=== PATIENT | male | born 1960 | race Caucasian/White ===

== ENCOUNTER 2020-05-20 09:28 | Outpatient (CLI) | payer OTHER ==
[2020-05-20] VITALS (17 sets, daily range): BP systolic 110–139; BP diastolic 68–91
== END 2020-05-20 23:59 | disposition home or self-care (01) ==
LOC: CARD DIAG 09:28
PROVIDERS: ATTEND Internal Medicine Interventional Cardiology
DX: R55 Syncope and collapse (principal)
CPT/HCPCS: 93660

== ENCOUNTER 2021-05-05 17:01 | Inpatient (IN) | payer OTHER ==
[~2021-05-05] VITALS: Ht 180.3 cm; Wt 86.4 kg
[2021-05-05 17:41] LABS: BASOPHILS # (AUTO) 0.1 X10'3 (0-0.2); BASOPHILS % (AUTO) 0.8 % (0-1); EOSINOPHILS # (AUTO) 0.2 X10'3 (0-0.9); EOSINOPHILS % (AUTO) 3.5 % (0-6); HEMOGLOBIN 15.3 g/dl (14.0-17.9); LYMPHOCYTES # (AUTO) 1.3 X10'3 (1.1-4.8); LYMPHOCYTES % (AUTO) 20.9 % (21-51); MEAN CORPUSCULAR HEMOGLOBIN 31.9 PG (27.0-31.0); MEAN CORPUSCULAR HGB CONC 33.9 g/dL (33.0-36.5); MEAN CORPUSCULAR VOLUME 93.9 FL (78-98); MEAN PLATELET VOLUME 9.2 FL (7.4-10.4); MONOCYTES # (AUTO) 0.5 X10'3 (0-0.9); MONOCYTES % (AUTO) 7.9 % (2-12); NEUTROPHILS # (AUTO) 4.3 X10'3 (1.8-7.7); NEUTROPHILS % (AUTO) 66.9 % (42-75); PLATELET COUNT 226 X10'3 (140-440); RED BLOOD COUNT 4.79 X10'6 (4.70-6.10); RED CELL DISTRIBUTION WIDTH 13.9 % (11.5-14.5); WHITE BLOOD COUNT 6.5 X10'3 (4.5-11.0)
[2021-05-05 17:52] LABS: ALANINE AMINOTRANSFERASE 44 U/L (12-78); ALBUMIN/GLOBULIN RATIO 1.2 (1.1-1.5); ALKALINE PHOSPHATASE 63 IU/L (46-116); ANION GAP 7 (8-16); ASPARTATE AMINO TRANSFERASE 15 U/L (10-37); BILIRUBIN,TOTAL 0.3 MG/DL (0.1-1.0); BLOOD UREA NITROGEN 11 MG/DL (7-18); BUN/CREATININE RATIO 12.2 (5.4-32.0); CALCIUM 9.1 MG/DL (8.5-10.1); CHLORIDE 107 MMOL/L (99-107); GLUCOSE 114 MG/DL (70-104); POTASSIUM 3.8 MMOL/L (3.5-5.1); SODIUM 143 MMOL/L (135-145); TOTAL CARBON DIOXIDE 29.3 MMOL/L (24-32); TOTAL PROTEIN 7.4 G/DL (6.4-8.2); eGFR 86 ML/MIN
[2021-05-05] MEDS ORDERED: MAGN400C PO (20:20)
[2021-05-05] MEDS ORDERED: LOSA25TA96 PO (20:20)
[2021-05-05] MEDS ORDERED: ALPR1TAB2 PO (20:20)
[2021-05-05] MEDS ORDERED: SERT-153 PO (20:20)
[2021-05-05] MEDS ORDERED: ondansetron/PF 4mg/2ml inj IV PRN (21:50)
[2021-05-05] MEDS ORDERED: ondansetron 4mg rapidly disintigrating tab PO PRN (21:50)
[2021-05-05] MEDS ORDERED: acetaminophen 650mg rectal suppository RC PRN (21:50)
[2021-05-05] MEDS ORDERED: diphenhydrAMINE 25mg capsule PO PRN (21:50)
[2021-05-05] MEDS ORDERED: mag hydrox/Alum hydrox/simeth 30ml oral suspension PO PRN (21:50)
[2021-05-05] MEDS ORDERED: diphenhydrAMINE 50 mg/ml inj IV PRN (21:50)
[2021-05-05] MEDS ORDERED: HYDROcodone/acetaminophen 5mg/325mg tablet PO PRN (21:50)
[2021-05-05] MEDS ORDERED: acetaminophen 325mg tablet PO PRN ×2 (21:50)
[2021-05-05] MEDS ORDERED: bisacodyl 10mg suppository rectal RC PRN (21:50)
[2021-05-05] MEDS ORDERED: magnesium hydroxide 30ml (MOM) UD suspension PO PRN (21:50)
[2021-05-05] MEDS: normal saline 1000ml 1,000 ML IV SCH (22:35)
[2021-05-05 22:39] LABS: HEMOGLOBIN A1C 5.3 % (4.5-6.2)
[2021-05-05 22:43] LABS: MAGNESIUM 2.1 MG/DL (1.5-2.4); PHOSPHORUS 3.4 MG/DL (2.3-4.5)
[2021-05-05 22:57] LABS: PARTIAL THROMBOPLASTIN TIME 28 SECONDS (22-32)
[2021-05-05 23:05] LABS: D-DIMER < 0.19 MG/L FEU (0-0.50)
[2021-05-05 23:07] LABS: CREATINE KINASE 46 U/L (39-308); LIPASE 132 U/L (73-393)
[2021-05-06] VITALS (16 sets, daily range): BP systolic 114–156; BP diastolic 61–88
[2021-05-06] MEDS ORDERED: ALPR0.5T9 PO (06:21)
[2021-05-06] MEDS ORDERED: MAGN100T5 PO (06:23)
--- NOTE | 2021-05-06 06:37 | NUR ---
Patient in room MED 317B. I have received report from LEATHA NEGRO and had the opportunity to ask questions and assume patient care.
[2021-05-06] MEDS ORDERED: ALPRAZolam 0.25mg tablet PO PRN (06:40)
[2021-05-06 07:10] LABS: BASOPHILS % (AUTO) 0.7 % (0-1); EOSINOPHILS # (AUTO) 0.2 X10'3 (0-0.9); EOSINOPHILS % (AUTO) 3.3 % (0-6); HEMATOCRIT 42.1 % (42.0-52.0); HEMOGLOBIN 14.6 g/dl (14.0-17.9); LYMPHOCYTES # (AUTO) 1.3 X10'3 (1.1-4.8); LYMPHOCYTES % (AUTO) 21.6 % (21-51); MEAN CORPUSCULAR HEMOGLOBIN 32.2 PG (27.0-31.0); MEAN CORPUSCULAR HGB CONC 34.7 g/dL (33.0-36.5); MEAN CORPUSCULAR VOLUME 92.8 FL (78-98); MEAN PLATELET VOLUME 9.5 FL (7.4-10.4); MONOCYTES # (AUTO) 0.4 X10'3 (0-0.9); NEUTROPHILS # (AUTO) 4.2 X10'3 (1.8-7.7); NEUTROPHILS % (AUTO) 67.4 % (42-75); PLATELET COUNT 205 X10'3 (140-440); RED BLOOD COUNT 4.54 X10'6 (4.70-6.10); RED CELL DISTRIBUTION WIDTH 13.9 % (11.5-14.5); WHITE BLOOD COUNT 6.2 X10'3 (4.5-11.0)
[2021-05-06 07:34] LABS: ALANINE AMINOTRANSFERASE 37 U/L (12-78); ALBUMIN 3.6 G/DL (3.4-5.0); ALBUMIN/GLOBULIN RATIO 1.2 (1.1-1.5); ALKALINE PHOSPHATASE 53 IU/L (46-116); ANION GAP 6 (8-16); ASPARTATE AMINO TRANSFERASE 15 U/L (10-37); BILIRUBIN,TOTAL 0.5 MG/DL (0.1-1.0); BLOOD UREA NITROGEN 10 MG/DL (7-18); BUN/CREATININE RATIO 12.3 (5.4-32.0); CALCIUM 8.5 MG/DL (8.5-10.1); CHLORIDE 107 MMOL/L (99-107); CREATININE 0.81 MG/DL (0.60-1.10); GLUCOSE 94 MG/DL (70-104); POTASSIUM 3.8 MMOL/L (3.5-5.1); SODIUM 140 MMOL/L (135-145); TOTAL CARBON DIOXIDE 26.8 MMOL/L (24-32); TOTAL PROTEIN 6.7 G/DL (6.4-8.2); eGFR > 90 ML/MIN
[2021-05-06 07:37] LABS: CHOL/HDL RATIO 5.3 (0.00-4.99); CHOLESTEROL 192 MG/DL (0-200); HDL CHOLESTEROL 36 MG/DL (35-60); LDL CHOLESTEROL 135 MG/DL (50-100); TRIGLYCERIDES 114 MG/DL (20-135)
[2021-05-06] MEDS: normal saline 1000ml 1,000 ML IV SCH ×2 (07:50→17:50)
[2021-05-06] MEDS: docusate sod 100mg capsule PO SCH ×2 (08:00→20:00)
[2021-05-06] MEDS: losartan 50mg tablet PO SCH (08:11)
[2021-05-06] MEDS: pantoprazole 40mg Tablet.DR PO SCH (08:11)
[2021-05-06] MEDS: sertraline 50mg tablet PO SCH (08:12)
[2021-05-06] MEDS: heparin, porcine 5000 units/ml vial SQ SCH (08:12)
[2021-05-06] MEDS ORDERED: FLU VACC QS2021-22(6MOS UP)/PF 60 MCG/0.5 ML SYRINGE IM ONE (12:15)
[2021-05-06] MEDS ORDERED: pneumococcal 23-VAL P-sac vacc 25 mcg/0.5ml vial IMVAC ONE (12:15)
[2021-05-06] MEDS ORDERED: ceFAZolin 1000mg inj ONE (14:13)
[2021-05-06] MEDS ORDERED: ceFAZolin 2gm in dextrose, iso 50 ML IV ONE (14:14)
[2021-05-06] MEDS ORDERED: LIDOcaine 1% w/EPI 1:100,000 30ml vial (MDV) ONE (14:14)
[2021-05-06] MEDS ORDERED: midazolam 1 mg/ML 2ml injection ONE ×2 (14:22→14:42)
[2021-05-06] MEDS ORDERED: fentaNYL/PF 50MCG/1 ML 2ML syringe ONE (14:22)
--- NOTE | 2021-05-06 14:54 | NUR ---
pt left floor at about 1410 to go to scientific laboratory supervisor for pacemaker placement
[2021-05-06] MEDS ORDERED: HYDROcodone/acetaminophen 10/325mg tab PO PRN (16:05)
[2021-05-06] MEDS ORDERED: LORazepam 1 MG tablet PO PRN (16:05)
[2021-05-06] MEDS ORDERED: HYDROcodone/acetaminophen 5mg/325mg tablet PO PRN (16:05)
--- NOTE | 2021-05-06 16:05 | NUR ---
pt arrived back to floor at 1555
--- NOTE | 2021-05-06 18:29 | NUR ---
Problems reprioritized. Patient report given, questions answered & plan of care reviewed with LEATHA Pinedo.
[2021-05-06] MEDS: ceFAZolin/D5W- 1GM premix 50 ML IV SCH (22:25)
[2021-05-07 02:00] VITALS: BP 117/63
[2021-05-07] MEDS: normal saline 1000ml 1,000 ML IV SCH ×2 (03:50→08:12)
[2021-05-07 06:00] VITALS: BP 122/66
--- NOTE | 2021-05-07 06:00 | NUR ---
Patient in room MED 317. I have received report from MONIK ZHANG and had the opportunity to ask questions and assume patient care.
[2021-05-07 06:07] LABS: BASOPHILS # (AUTO) 0.1 X10'3 (0-0.2); BASOPHILS % (AUTO) 0.7 % (0-1); EOSINOPHILS # (AUTO) 0.2 X10'3 (0-0.9); EOSINOPHILS % (AUTO) 2.4 % (0-6); HEMATOCRIT 41.6 % (42.0-52.0); HEMOGLOBIN 14.3 g/dl (14.0-17.9); LYMPHOCYTES # (AUTO) 1.4 X10'3 (1.1-4.8); LYMPHOCYTES % (AUTO) 18.3 % (21-51); MEAN CORPUSCULAR HEMOGLOBIN 32.1 PG (27.0-31.0); MEAN CORPUSCULAR HGB CONC 34.3 g/dL (33.0-36.5); MEAN CORPUSCULAR VOLUME 93.6 FL (78-98); MEAN PLATELET VOLUME 9.2 FL (7.4-10.4); MONOCYTES # (AUTO) 0.6 X10'3 (0-0.9); MONOCYTES % (AUTO) 7.7 % (2-12); NEUTROPHILS # (AUTO) 5.2 X10'3 (1.8-7.7); NEUTROPHILS % (AUTO) 70.9 % (42-75); PLATELET COUNT 195 X10'3 (140-440); RED BLOOD COUNT 4.45 X10'6 (4.70-6.10); RED CELL DISTRIBUTION WIDTH 13.5 % (11.5-14.5); WHITE BLOOD COUNT 7.4 X10'3 (4.5-11.0)
[2021-05-07 06:23] LABS: ALANINE AMINOTRANSFERASE 33 U/L (12-78); ALBUMIN 3.4 G/DL (3.4-5.0); ALBUMIN/GLOBULIN RATIO 1.2 (1.1-1.5); ALKALINE PHOSPHATASE 54 IU/L (46-116); ANION GAP 11 (8-16); ASPARTATE AMINO TRANSFERASE 15 U/L (10-37); BILIRUBIN,TOTAL 0.4 MG/DL (0.1-1.0); BLOOD UREA NITROGEN 13 MG/DL (7-18); BUN/CREATININE RATIO 16.9 (5.4-32.0); CALCIUM 8.3 MG/DL (8.5-10.1); CHLORIDE 108 MMOL/L (99-107); CREATININE 0.77 MG/DL (0.60-1.10); GLUCOSE 96 MG/DL (70-104); POTASSIUM 3.8 MMOL/L (3.5-5.1); SODIUM 143 MMOL/L (135-145); TOTAL CARBON DIOXIDE 24.2 MMOL/L (24-32); TOTAL PROTEIN 6.2 G/DL (6.4-8.2); eGFR > 90 ML/MIN
--- NOTE | 2021-05-07 06:58 | NUR ---
Patient in room MED 317. I have received report from rudy mars and had the opportunity to ask questions and assume patient care.
[2021-05-07] MEDS: docusate sod 100mg capsule PO SCH (08:00)
[2021-05-07] MEDS: ceFAZolin/D5W- 1GM premix 50 ML IV SCH (08:10)
[2021-05-07] MEDS: losartan 50mg tablet PO SCH (08:11)
[2021-05-07] MEDS: sertraline 50mg tablet PO SCH (08:11)
[2021-05-07] MEDS: pantoprazole 40mg Tablet.DR PO SCH (08:11)
[2021-05-07] MEDS: heparin, porcine 5000 units/ml vial SQ SCH (08:12)
[2021-05-07] MEDS ORDERED: CEPH250T PO (09:44)
--- NOTE | 2021-05-07 10:36 | NUR ---
PT DISCHARGED IN STABLE CONDITION. LEFT FACILITY IN PRIVATE VEHICLE WITH . IV DC CANULA INTACT. FOLLOW UP INSTRUCTIONS GIVEN, ALL QUESTIONS ANSWERED. ALL BELONGINGS IN HAND. Addendum: 05/07/21 at 1042 by Beronica Kendall RN Amended: Links added.
[2021-05-07 10:55] VITALS: BP 120/76
== END 2021-05-07 10:35 | disposition home or self-care (01) | DRG 244 ==
LOC: ER 17:03 → ED HOLD 22:10 → MED 3N 05-06 00:41
PROVIDERS: ADMIT Family Medicine; ATTEND Internal Medicine
PROC: 0JH606Z Insertion of Pacemaker, Dual Chamber into Chest Subcutaneous Tissue and Fascia, Open Approach (ICD-10-PCS; principal; 2021-05-06)
PROC: 02H63JZ Insertion of Pacemaker Lead into Right Atrium, Percutaneous Approach (ICD-10-PCS; 2021-05-06)
PROC: 02HK3JZ Insertion of Pacemaker Lead into Right Ventricle, Percutaneous Approach (ICD-10-PCS; 2021-05-06)
DX: I44.1 Atrioventricular block, second degree (principal); F41.8 Other specified anxiety disorders; R00.1 Bradycardia, unspecified; R55 Syncope and collapse; I45.10 Unspecified right bundle-branch block; I10 Essential (primary) hypertension; Z79.899 Other long term (current) drug therapy; Z80.1 Family history of malignant neoplasm of trachea, bronchus and lung
CPT/HCPCS: 33208; 36415; 71045; 80053; 80061; 82550; 82948; 83036; 83690; 83735; 83880; 84100; 84443; 84484; 85025; 85379; 85610; 85730; 87081; 93005; 93306; 99152; 99153; 99285; A4565; A4620; A6258; C1785; C1898; G0378; J0690; J1644; J2250; J3010; J3490; J7030

== ENCOUNTER 2023-04-19 12:18 | Emergency (ER) | payer OTHER ==
[~2023-04-19] VITALS: Ht 180.3 cm; Wt 88.6 kg
[~2023-04-19 12:18] MED LIST: ALPR0.5T9 PO; LOSA-415 PO; MAGN100T5 PO; SERT-153 PO
[2023-04-19 12:55] LABS: BASOPHILS # (AUTO) 0.1 X10'3 (0-0.2); BASOPHILS % (AUTO) 0.8 % (0-1); EOSINOPHILS # (AUTO) 0.1 X10'3 (0-0.9); EOSINOPHILS % (AUTO) 1.1 % (0-6); HEMOGLOBIN 16.4 g/dl (14.0-17.9); LYMPHOCYTES # (AUTO) 1.1 X10'3 (1.1-4.8); MEAN CORPUSCULAR HEMOGLOBIN 32.1 PG (27.0-31.0); MEAN CORPUSCULAR HGB CONC 34.2 g/dL (33.0-36.5); MEAN CORPUSCULAR VOLUME 93.9 FL (78-98); MEAN PLATELET VOLUME 9.3 FL (7.4-10.4); MONOCYTES # (AUTO) 0.5 X10'3 (0-0.9); MONOCYTES % (AUTO) 6.3 % (2-12); NEUTROPHILS # (AUTO) 5.7 X10'3 (1.8-7.7); NEUTROPHILS % (AUTO) 76.8 % (42-75); PLATELET COUNT 222 X10'3 (140-440); RED BLOOD COUNT 5.12 X10'6 (4.70-6.10); RED CELL DISTRIBUTION WIDTH 13.7 % (11.5-14.5); WHITE BLOOD COUNT 7.5 X10'3 (4.5-11.0)
[2023-04-19 13:14] LABS: ALANINE AMINOTRANSFERASE 34 U/L (12-78); ALBUMIN 4.2 G/DL (3.4-5.0); ALBUMIN/GLOBULIN RATIO 1.3 (1.1-1.5); ALKALINE PHOSPHATASE 68 IU/L (46-116); ANION GAP 8 (8-16); ASPARTATE AMINO TRANSFERASE 18 U/L (10-37); BILIRUBIN,TOTAL 0.6 MG/DL (0.1-1.0); BLOOD UREA NITROGEN 11 MG/DL (7-18); BUN/CREATININE RATIO 12.4 (10.0-20.0); CALCIUM 8.9 MG/DL (8.5-10.1); CHLORIDE 104 MMOL/L (99-107); CREATININE 0.89 MG/DL (0.60-1.10); GLUCOSE 99 MG/DL (70-104); POTASSIUM 3.8 MMOL/L (3.5-5.1); PRO BRAIN NATRIURETIC PEPTIDE 110 PG/ML (0-125); SODIUM 138 MMOL/L (135-145); TOTAL CARBON DIOXIDE 25.8 MMOL/L (24-32); TOTAL PROTEIN 7.5 G/DL (6.4-8.2); eCRCL 92 ML/MIN; eGFR 87 ML/MIN
[2023-04-19] MEDS ORDERED: LORazepam 1 MG tablet PO ONE (14:40)
[2023-04-19] MEDS ORDERED: aspirin 325mg tablet, delayed-release (Ecotrin) PO ONE (14:40)
[2023-04-19] MEDS ORDERED: LORA-269 PO (15:11)
--- NOTE | 2023-04-19 15:20 | NUR ---
NAQVI PACEMAKER INTERROGATED
[2023-04-19 15:43] VITALS: BP 163/73; PULSE 71; RESP 18; TEMP 98; O2SAT 96
--- NOTE | 2023-04-19 16:40 | NUR ---
AGREE WITH LVNS ASSESSMENT, REVIEWED
== END 2023-04-19 15:45 | disposition home or self-care (01) ==
LOC: ER 12:19
DX: R07.89 Other chest pain (principal); R42 Dizziness and giddiness; F41.9 Anxiety disorder, unspecified; F43.10 Post-traumatic stress disorder, unspecified; Z91.030 Bee allergy status; Z79.899 Other long term (current) drug therapy; X58.XXXA Exposure to other specified factors, initial encounter; Y93.89 Activity, other specified; Y92.89 Other specified places as the place of occurrence of the external cause; Y99.8 Other external cause status
CPT/HCPCS: 36415; 71045; 80053; 83880; 84484; 85025; 93005; 99285

== ENCOUNTER 2024-02-04 12:29 | Emergency (ER) | payer OTHER ==
[~2024-02-04] VITALS: Ht 180.3 cm; Wt 84.1 kg
[~2024-02-04 12:29] MED LIST changes: +LORA-269 PO
[2024-02-04] MEDS ORDERED: AMOX-580 PO (14:34)
[2024-02-04 14:50] VITALS: BP 120/63; PULSE 62; RESP 14; TEMP 98.2; O2SAT 100
== END 2024-02-04 14:52 | disposition home or self-care (01) ==
LOC: ER 12:30
DX: S81.852A Open bite, left lower leg, initial encounter (principal); Z91.030 Bee allergy status; Z79.1 Long term (current) use of non-steroidal anti-inflammatories (NSAID); Z79.899 Other long term (current) drug therapy; W55.01XA Bitten by cat, initial encounter; Y93.89 Activity, other specified; Y92.89 Other specified places as the place of occurrence of the external cause; Y99.8 Other external cause status
CPT/HCPCS: 99283

== ENCOUNTER 2024-09-26 15:24 | Emergency (ER) | payer OTHER ==
[~2024-09-26] VITALS: Ht 180.3 cm; Wt 85.5 kg
[2024-09-26 16:13] LABS: BASOPHILS % (AUTO) 0.6 % (0-1); EOSINOPHILS # (AUTO) 0.1 X10'3 (0-0.9); HEMATOCRIT 44.9 % (42.0-52.0); HEMOGLOBIN 15.5 g/dl (14.0-17.9); LYMPHOCYTES # (AUTO) 1.1 X10'3 (1.1-4.8); LYMPHOCYTES % (AUTO) 18.7 % (21-51); MEAN CORPUSCULAR HEMOGLOBIN 32.5 PG (27.0-31.0); MEAN CORPUSCULAR HGB CONC 34.6 g/dL (33.0-36.5); MEAN CORPUSCULAR VOLUME 93.8 FL (78-98); MEAN PLATELET VOLUME 8.7 FL (7.4-10.4); MONOCYTES # (AUTO) 0.3 X10'3 (0-0.9); MONOCYTES % (AUTO) 5.5 % (2-12); NEUTROPHILS # (AUTO) 4.2 X10'3 (1.8-7.7); NEUTROPHILS % (AUTO) 73.2 % (42-75); PLATELET COUNT 195 X10'3 (140-440); RED BLOOD COUNT 4.79 X10'6 (4.70-6.10); WHITE BLOOD COUNT 5.7 X10'3 (4.5-11.0)
[2024-09-26 16:30] LABS: ALANINE AMINOTRANSFERASE 53 U/L (12-78); ALBUMIN 4.4 G/DL (3.4-5.0); ALBUMIN/GLOBULIN RATIO 1.5 (1.1-1.5); ALKALINE PHOSPHATASE 78 IU/L (46-116); ANION GAP 8 (8-16); ASPARTATE AMINO TRANSFERASE 28 U/L (10-37); BILIRUBIN,TOTAL 0.5 MG/DL (0.1-1.0); BLOOD UREA NITROGEN 12 MG/DL (7-18); BUN/CREATININE RATIO 14.5 (10.0-20.0); CALCIUM 9.2 MG/DL (8.5-10.1); CHLORIDE 108 MMOL/L (99-107); CREATININE 0.83 MG/DL (0.60-1.10); GLUCOSE 103 MG/DL (70-104); POTASSIUM 4.4 MMOL/L (3.5-5.1); PRO BRAIN NATRIURETIC PEPTIDE 78 PG/ML (0-125); SODIUM 145 MMOL/L (135-145); TOTAL CARBON DIOXIDE 28.7 MMOL/L (24-32); TOTAL PROTEIN 7.4 G/DL (6.4-8.2); eCRCL 96 ML/MIN; eGFR > 90 ML/MIN
[2024-09-26 18:02] LABS: BILIRUBIN,URINE NEGATIVE (Neg); CLARITY,URINE CLEAR (Clear); COLOR,URINE YELLOW (Yellow); GLUCOSE, URINE NEGATIVE (Neg); KETONES,URINE NEGATIVE (Neg); LEUKOCYTE ESTERASE ,URINE NEGATIVE (Neg); NITRITES, URINE NEGATIVE (Neg); PROTEIN,URINE NEGATIVE (Neg); UROBILINOGEN,URINE 0.2 E.U/dL (0.2-1.0)
[2024-09-26 18:19] LABS: OCCULT BLOOD,URINE SMALL (Neg)
[2024-09-26 18:46] LABS: UA COLLECTION TYPE NON-SPECIFIED
[2024-09-26 18:48] LABS: BACTERIA,URINE NONE SEEN /HPF (Neg); RBC,URINE 0-2 /HPF (0-2); SQUAMOUS EPITHELIAL CELL,UR FEW /LPF (FEW); WBC,URINE NONE SEEN /HPF (0-4)
[2024-09-26 19:11] VITALS: BP 120/63; PULSE 70; RESP 16; TEMP 98.1; O2SAT 99
== END 2024-09-26 19:11 | disposition home or self-care (01) ==
LOC: ER 15:25
DX: R42 Dizziness and giddiness (principal); Z91.030 Bee allergy status
CPT/HCPCS: 36415; 70450; 71045; 80053; 81001; 83880; 84484; 85025; 93005; 99285

== ENCOUNTER 2025-01-28 22:43 | Emergency (ER) | payer OTHER ==
[~2025-01-28] VITALS: Ht 180.3 cm; Wt 84.1 kg
[2025-01-28 22:47] VITALS: TEMP 97.9
--- NOTE | 2025-01-28 22:53 | ELECTROCARDIOGRAPH REPORT ---
[facility] Test Date: 2025-01-28 Test Time: 22:46:36 Pat Name: ROSA MONTOYA Department: EMERGENCY ROOM Room: Gender: M Beer Runner: : 1960 Requested By: ISABEL GARCIA Order Number: [id number] Reading MD: Measurements Intervals [place] Rate: 77 P: -26 GA: 335 QRS: -63 QRSD: 171 T: 20 QT: 489 QTc: 554 Interpretive Statements Ventricular-paced complexes No further analysis attempted due to paced rhythm Please click the below link to view image of tracing.
--- NOTE | 2025-01-28 23:12 | RADIOLOGY REPORT ---
CHEST RADIOGRAPH Indication: CP Technique: 1 view Comparison: DI CHEST,SINGLE VIEW on DOS: 09/26/24, DI CHEST,SINGLE VIEW on DOS: 04/19/23, CHEST,SINGLE VIEW on DOS: 05/05/21 FINDINGS: Lines and Tubes: Left implanted cardiac device with unchanged positioning Lungs/Pleura: No focal consolidation, pleural effusion or pneumothorax. Cardiomediastinum: Unremarkable. Other: No acute osseous abnormality. IMPRESSION: 1. No acute cardiopulmonary abnormality.
[2025-01-28 23:17] LABS: MEAN PLATELET VOLUME 8.8 FL (7.4-10.4); RED CELL DISTRIBUTION WIDTH 14.1 % (11.5-14.5)
[2025-01-28 23:42] LABS: CREATININE 1.13 MG/DL (0.60-1.10); PRO BRAIN NATRIURETIC PEPTIDE 63 PG/ML (0-125); TOTAL CARBON DIOXIDE 32.2 MMOL/L (24-32); eCRCL 70 ML/MIN; eGFR 65 ML/MIN
--- NOTE | 2025-01-29 01:27 | Physician Documentation ---
History of Present Illness ~ Chief Complaint: Palpitations Stated Complaint: CHEST DISCOMFORT Time Seen by MD: 01:26 Primary Medical Doctor: DEA Zuñiga Patient presents to the emergency room with chief complaint of left-sided palpitations. He states that has series of palpitations what happened every six or 7 seconds. No chest pain no nausea no vomiting. He does state that he has a pacemaker placed. No medication changes. He states he took some metoprolol and some Ativan that he had in his house and symptoms seemed to improve upon arrival to the emergency room. Medication Reconciliation Allergies: Coded Allergies: bee venom protein (honey bee) (Unverified Allergy, Unknown, 04/19/23) Scheduled Lorazepam (Ativan), 1 TAB PO Q8H Losartan Potassium* (Cozaar*), 2 TAB PO DAILY, (Reported) Magnesium Amino Acid Chelate (Magnesium), 2 TAB PO DAILY, (Reported) Sertraline HCl (Sertraline HCl), 2 TAB PO DAILY, (Reported) Scheduled PRN Alprazolam (Alprazolam), 0.5 TAB PO BID PRN for anxiety, (Reported) Past Medical History Past Medical History: No Pertinent History Past Surgical History: no surgical history Alcohol Use: None Drug Use: none Lives with: Spouse Lives In: Home Review of Systems ROS All review of systems negative except as per HPI Physical Exam Vital Signs: Temperature: 97.9, Source: Temporal, Heart Rate: 62, Respiratory Rate: 16, BP: 128/73, Pulse Oximetry: 98, Weight: 84.090 Oxygen Flow Rate: 0 Physical Exam General: Patient is awake, alert, oriented x4 in no acute distress and well appearing.~ Head: Normocephalic and atraumatic. Eyes: Conjunctival normal. EOMI. PERRL. ENT: Mucous membranes moist. Neck: Supple, trachea is midline. Chest: Clear to auscultation bilaterally without rales, rhonchi, or wheezes. There is no accessory muscle use or retractions. Cardiac: RRR without murmurs, gallops, or rubs. Progress Results/Orders Results/Orders Orders - SAM LEAL MD Chest,Single View (01/28/25 22:56) Monitor (01/28/25 22:51) Saline Lock (01/28/25 22:51) Oxygen (01/28/25 22:51) Hs Troponin I W Calculations (01/29/25 01:51) Completed Orders - SAM LEAL MD Chest,Single View (01/28/25 22:56) Cbc/Diff (01/28/25 22:51) BMP (01/28/25 22:51) PBNP (01/28/25 22:51) Electrocardiogram (01/28/25 22:51) Hs Troponin I W Calculations (01/28/25 22:51) Hs Troponin I W Calculations (01/29/25 00:51) Vital Signs 01/28/25 01/29/25 01/29/25 01/29/25 22:47 00:59 01:22 01:22 Temp 97.9 Pulse 68 64 62 Resp 18 15 16 B/P (MAP) 143/72 126/67 (86) 128/73 (91) Pulse Ox 98 98 98 O2 Flow Rate 0 0 Laboratory Tests Test 01/28/25 23:02 01/29/25 01:12 01/29/25 02:12 White Blood Count 7.0 Red Blood Count 4.73 Hemoglobin 15.3 Hematocrit 43.8 Mean Corpuscular Volume 92.5 Mean Corpuscular Hemoglobin 32.4 H Mean Corpuscular Hemoglobin Concent 35.0 Red Cell Distribution Width 14.1 Platelet Count 192 Mean Platelet Volume 8.8 Neutrophils (%) (Auto) 65.8 Lymphocytes (%) (Auto) 25.4 Monocytes (%) (Auto) 7.0 Eosinophils (%) (Auto) 1.3 Basophils (%) (Auto) 0.5 Neutrophils # (Auto) 4.6 Lymphocytes # (Auto) 1.8 Monocytes # (Auto) 0.5 Eosinophils # (Auto) 0.1 Basophils # (Auto) 0.0 CBC Comment Sodium Level 141 Potassium Level 4.4 Chloride Level 106 Carbon Dioxide Level 32.2 H Anion Gap 3 L Blood Urea Nitrogen 12 Creatinine 1.13 H Estimated GFR/1.73 m2 65 BUN/Creatinine Ratio 10.6 Glucose Level 103 Calcium Level 9.1 Troponin I High Sensitivity 6 5 Pro-B-Type Natriuretic Peptide 63 Albumin 4.1 Chemistry Comments Troponin I High Sens Percent Delta 16 Troponin I Hi Sens Absolute Change -1 EKG/XRAY/CT/US/VASC/MRI EKG : Additional Comment EKG interpreted by myself shows time of 07/24/2045, rate 77, ventricular paced complexes, no further analysis secondary to paced rhythm Chest X-Ray : Additional Comments Exam: CHEST,SINGLE VIEW CHEST RADIOGRAPH Indication: CP Technique: 1 view Comparison: DI CHEST,SINGLE VIEW on DOS: 09/26/24, DI CHEST,SINGLE VIEW on DOS: 04/19/23, CHEST,SINGLE VIEW on DOS: 05/05/21 FINDINGS: Lines and Tubes: Left implanted cardiac device with unchanged positioning Lungs/Pleura: No focal consolidation, pleural effusion or pneumothorax. Cardiomediastinum: Unremarkable. Other: No acute osseous abnormality. IMPRESSION: 1. No acute cardiopulmonary abnormality. Medical Decision Making Findings Patient presents to the emergency room for evaluation of palpitations. Differentials include but are not limited to cardiac arrhythmia, muscle spasm, esophageal spasm, ACS therefore emergent labs ordered which was reassuring of troponins being negative. Patient's pacemaker was interpreted with no abnormalities appreciated. I suspect possible spasm and that has chest wall. No actual pain Departure Disposition: 01 HOME / SELF CARE / HOMELESS Impression: Primary Impression: Palpitations Condition: Stable Discharge Instructions: Palpitations, [id number] Referrals: NO PRIMARY CARE PROVIDER (PCP) Signature Scribe Signature: No scribe Attestation: The note accurately reflects work and decisions made by me.Sam Leal MD 01/29/25 02:38 SAM LEAL MD Jan 29, 2025 01:27
[2025-01-29 02:50] VITALS: BP 118/67; PULSE 65; RESP 16; O2SAT 98
== END 2025-01-29 02:54 | disposition home or self-care (01) ==
LOC: ER 22:44
DX: R00.2 Palpitations (principal); R06.02 Shortness of breath; Z91.030 Bee allergy status; Z95.0 Presence of cardiac pacemaker
CPT/HCPCS: 36415; 71045; 80048; 83880; 84484; 85025; 93005; 99285